=== PATIENT | female | born 1970 | race Hispanic/Latino ===

== ENCOUNTER 2017-01-26 10:46 | Emergency (ER) | payer SELFPAY ==
[~2017-01-26] VITALS: Ht 170.2 cm; Wt 70.5 kg
[2017-01-26 12:21] VITALS: BP 108/62
== END 2017-01-26 12:22 | disposition home or self-care (01) ==
LOC: EME 10:46
DX: S93.401A Sprain of unspecified ligament of right ankle, initial encounter (principal); X50.0XXA Overexertion from strenuous movement or load, initial encounter; Y93.A2 Activity, calisthenics; Y99.8 Other external cause status
CPT/HCPCS: 73610; 73630; 99281; 99284

== ENCOUNTER 2017-04-28 19:35 | Emergency (ER) | payer SELFPAY ==
[~2017-04-28] VITALS: Ht 170.2 cm; Wt 74.2 kg
[2017-04-28 20:18] LABS: HEMATOCRIT 45.4 % (36.0-46.0); MCH 29.5 PG (29.0-34.0); MCHC 34.1 G/DL (30.0-36.0); MCV 86.5 FL (83-99); MEAN PLAT.VOLUME 8.5 uM^3 (9.5-12.4); PLATELET COUNT 247 K/uL (156-360); RBC DIS.WIDTH-CV 12.5 % (11.8-14.6); RBC DIS.WIDTH-SD 39.1 % (39-53); RED BLOOD COUNT 5.25 M/uL (3.80-5.20); WHITE BLOOD COUNT 9.3 K/uL (4.1-10.2)
[2017-04-28 20:44] LABS: CHLORIDE 106 mEq/L (99-109); POTASSIUM 4.2 mEq/L (3.7-5.4); SODIUM 143 mEq/L (136-147)
[2017-04-28 20:46] LABS: GLUCOSE 96 mg/dL (70-99)
[2017-04-28 20:47] LABS: ANION GAP 11 MEQ/L (2-14)
[2017-04-28 20:48] LABS: QUANTITATIVE HCG < 4.0 MIU/ML; TOTAL BILIRUBIN 0.4 mg/dL (0.0-1.0)
[2017-04-28 20:49] LABS: ALKALINE PHOSPHATASE 92 IU/L (3-129)
[2017-04-28 20:50] LABS: GFR ESTIMATE (CALCULATED) > 59 mL/min/
[2017-04-28 20:51] LABS: UREA NITROGEN (BUN) 20 mg/dL (9-23)
[2017-04-28] MEDS ORDERED: ANTIVERT25 MG PO (22:45)
[2017-04-28 22:53] VITALS: BP 118/80
== END 2017-04-28 22:54 | disposition home or self-care (01) ==
LOC: EME 19:35
DX: R42 Dizziness and giddiness (principal); R51 Headache
CPT/HCPCS: 70450; 80053; 81003; 84702; 85027; 99281; 99283